=== PATIENT | male | born 1990 | race Caucasian/White ===

== ENCOUNTER 2019-10-19 07:01 | Outpatient (CLI) | payer OTHER, SELFPAY ==
[2019-10-19 08:30] LABS: Abs Immature Grans 0.05 k/cumm (0.0-0.09); Absolute Basophil Count 0.05 k/cumm (0.0-0.2); Absolute Eosinophil Count 0.15 k/cumm (0.0-0.7); Absolute Lymphocyte Count 0.91 k/cumm (1.2-3.4); Absolute Monocyte Count 0.69 k/cumm (0.11-0.7); Absolute Neutrophil Count 3.66 k/cumm (1.2-6.7); Basophils % 0.9; Eosinophils % 2.7; HCT 40.1 % (40.0-50.0); HGB 14.2 g/dL (13.5-17.5); Immature Grans % 0.9; Lymphocytes % 16.5; Mean Corp. HGB Concentration 35.4 g/dL (32.0-36.0); Mean Corpuscular Hemoglobin 31.6 pg (27.0-33.0); Mean Corpuscular Volume 89.1 fL (80-95); Mean Platelet Volume 8.9 fL (8.0-11.0); Monocytes % 12.5; Neutrophils % 66.5; Platelet Count 142 x1000/uL (130-400); RBC Distribution Width 13.9 % (11.8-14.1); White Blood Cell Count 5.51 k/cumm (4.4-10.8)
[2019-10-19 08:54] LABS: ALT 19 U/L (16-63); AST 20 U/L (15-37); Albumin 3.9 g/dL (3.4-5.0); Alkaline Phosphatase 66 U/L (46-116); BUN 12 mg/dL (7-18); Bilirubin, Total 1.3 mg/dL (0.2-1.0); CO2 28.7 mmol/L (21.0-32.0); CREATININE 0.82 mg/dL (0.70-1.30); Calcium 9.2 mg/dL (8.5-10.1); Glucose 85 mg/dL (74-106); LDH 263 U/L (85-227); Total Protein 6.8 g/dL (6.4-8.2)
[2019-10-19 08:59] LABS: Anion Gap 8.3 mmol/L (3-11); Chloride 104 mmol/L (98-107); Sodium 141 mmol/L (136-145)
== END 2019-10-19 07:21 ==
PROVIDERS: PCP Internal Medicine Hematology & Oncology; Visit Provider Internal Medicine Hematology & Oncology
DX: C82.11 Follicular lymphoma grade II, lymph nodes of head, face, and neck (principal)
CPT/HCPCS: 36415; 80053; 83615; 85025

== ENCOUNTER 2019-11-03 07:05 | Outpatient (CLI) | payer OTHER, SELFPAY ==
[2019-11-03 08:00] LABS: HCT 40.2 % (40.0-50.0); HGB 14.2 g/dL (13.5-17.5); Mean Corp. HGB Concentration 35.3 g/dL (32.0-36.0); Mean Corpuscular Hemoglobin 31.5 pg (27.0-33.0); Mean Corpuscular Volume 89.1 fL (80-95); Mean Platelet Volume 8.7 fL (8.0-11.0); Platelet Count 152 x1000/uL (130-400); RBC 4.51 m/cumm (4.50-6.00); RBC Distribution Width 14.6 % (11.8-14.1); White Blood Cell Count 5.39 k/cumm (4.4-10.8)
[2019-11-03 08:09] LABS: ALT 22 U/L (16-63); AST 14 U/L (15-37); Albumin 4.3 g/dL (3.4-5.0); Alkaline Phosphatase 80 U/L (46-116); BUN 12 mg/dL (7-18); CREATININE 0.95 mg/dL (0.70-1.30); Calcium 9.4 mg/dL (8.5-10.1); Chloride 105 mmol/L (98-107); Glucose 85 mg/dL (74-106); LDH 213 U/L (85-227); Potassium 4.2 mmol/L (3.5-5.1); Sodium 143 mmol/L (136-145); Total Protein 7.2 g/dL (6.4-8.2)
[2019-11-03 08:18] LABS: Absolute Lymphocyte Count 0.81 k/cumm (1.2-3.4); Absolute Monocyte Count 0.54 k/cumm (0.11-0.7); Absolute Neutrophil Count 3.67 k/cumm (1.2-6.7); Atypical Lymphocytes % 1
[2019-11-03 08:19] LABS: Absolute Basophil Count 0.05 k/cumm (0.0-0.2); Absolute Eosinophil Count 0.11 k/cumm (0.0-0.7); Diff Comment Manual Differential; Polychromasia Present
== END 2019-11-03 07:25 ==
PROVIDERS: PCP Internal Medicine Hematology & Oncology; Visit Provider Internal Medicine Hematology & Oncology
DX: C82.11 Follicular lymphoma grade II, lymph nodes of head, face, and neck (principal)
CPT/HCPCS: 36415; 80053; 83615; 85025

== ENCOUNTER 2020-02-16 01:17 | Outpatient (RCR) | payer MEDICAID, SELFPAY ==
[2020-02-16 07:43] LABS: Absolute Eosinophil Count 0.14 k/cumm (0.0-0.7); HCT 43.2 % (40.0-50.0); HGB 15.8 g/dL (13.5-17.5); Mean Corp. HGB Concentration 36.6 g/dL (32.0-36.0); Mean Corpuscular Hemoglobin 32.8 pg (27.0-33.0); Mean Corpuscular Volume 89.6 fL (80-95); Mean Platelet Volume 8.7 fL (8.0-11.0); Platelet Count 230 x1000/uL (130-400); RBC 4.82 m/cumm (4.50-6.00); RBC Distribution Width 13.5 % (11.8-14.1)
[2020-02-16 07:57] LABS: ALT 48 U/L (16-63); AST 25 U/L (15-37); Albumin 4.6 g/dL (3.4-5.0); Alkaline Phosphatase 101 U/L (46-116); Anion Gap 9.7 mmol/L (3-11); BUN 14 mg/dL (7-18); Bilirubin, Total 1.4 mg/dL (0.2-1.0); CO2 24.3 mmol/L (21.0-32.0); CREATININE 0.93 mg/dL (0.70-1.30); Calcium 9.8 mg/dL (8.5-10.1); Chloride 103 mmol/L (98-107); Glucose 95 mg/dL (74-106); LDH 161 U/L (85-227); Potassium 4.1 mmol/L (3.5-5.1); Sodium 137 mmol/L (136-145); Total Protein 7.9 g/dL (6.4-8.2)
[2020-02-16 08:28] LABS: White Blood Cell Count 1.59 k/cumm (4.4-10.8)
[2020-02-16 08:29] LABS: Absolute Lymphocyte Count 0.37 k/cumm (1.2-3.4); Absolute Neutrophil Count 0.14 k/cumm (1.2-6.7); Atypical Lymphocytes % 2
[2020-02-16 08:30] LABS: Absolute Basophil Count 0.06 k/cumm (0.0-0.2); Absolute Monocyte Count 0.87 k/cumm (0.11-0.7); Diff Comment Manual Differential; RBC Morphology Normal
== END 2020-02-24 23:59 | disposition home or self-care (01) ==
LOC: INF 01:17
PROVIDERS: PCP Internal Medicine Hematology & Oncology; Visit Provider Internal Medicine Hematology & Oncology
DX: C82.11 Follicular lymphoma grade II, lymph nodes of head, face, and neck (principal); Z45.2 Encounter for adjustment and management of vascular access device
CPT/HCPCS: 36415; 80053; 83615; 85025

== ENCOUNTER 2020-03-08 10:21 | Outpatient (RCR) | payer MEDICAID, SELFPAY ==
[2020-03-08] MEDS: Normal Saline Flush 10 ML SYR 20 ML IVP (10:33)
[2020-03-08 10:35] LABS: Abs Immature Grans 0.01 k/cumm (0.0-0.09); Absolute Basophil Count 0.07 k/cumm (0.0-0.2); Absolute Eosinophil Count 0.17 k/cumm (0.0-0.7); Absolute Lymphocyte Count 0.46 k/cumm (1.2-3.4); Absolute Monocyte Count 0.49 k/cumm (0.11-0.7); Absolute Neutrophil Count 1.68 k/cumm (1.2-6.7); Basophils % 2.4; Eosinophils % 5.9; HCT 43.9 % (40.0-50.0); HGB 15.9 g/dL (13.5-17.5); Immature Grans % 0.3 %; Mean Corp. HGB Concentration 36.2 g/dL (32.0-36.0); Mean Corpuscular Hemoglobin 32.4 pg (27.0-33.0); Mean Corpuscular Volume 89.4 fL (80-95); Mean Platelet Volume 8.7 fL (8.0-11.0); Neutrophils % 58.4; Platelet Count 273 x1000/uL (130-400); RBC 4.91 m/cumm (4.50-6.00); White Blood Cell Count 2.88 k/cumm (4.4-10.8)
== END 2020-03-26 23:59 | disposition home or self-care (01) ==
LOC: INF 10:21
PROVIDERS: PCP Internal Medicine Hematology & Oncology; Visit Provider Internal Medicine Hematology & Oncology
DX: C82.11 Follicular lymphoma grade II, lymph nodes of head, face, and neck (principal)
CPT/HCPCS: 36415; 85025

== ENCOUNTER 2020-06-28 04:48 | Outpatient (RCR) | payer MEDICAID, SELFPAY | END 2020-07-26 23:59 | disposition home or self-care (01) | LOC: INF 04:48 | PROVIDERS: PCP Internal Medicine Hematology & Oncology; Visit Provider Internal Medicine Hematology & Oncology | DX: Z53.9 Procedure and treatment not carried out, unspecified reason (principal) ==

== ENCOUNTER 2021-10-12 02:16 | Outpatient (CLI) | payer MEDICAID, SELFPAY ==
--- NOTE | 2021-10-12 | DI.US_ITS ---
APPROVED REPORT EXAM: Comprehensive 2D, Doppler, and color-flow Echocardiogram Patient Location: Out-Patient [facility] Operator: Michaelle Becker RDCS (AE) Indications: Pre anthracycline chemo, Follicular lymphoma Other Information Study Quality: Adequate Conclusion Normal left ventricular wall thickness and chamber size. Estimated ejection fraction is 60 to 65%. Wall motion is normal Normal right ventricular size and systolic function Both atria are normal in size There is no structural or hemodynamically significant valvular disease Wall motion Left Ventricle The left ventricle is normal size. The left ventricular systolic function is normal. The left ventric ular ejection fraction is within the normal range. There is normal left ventricular wall thickness. T here is normal LV segmental wall motion. There is no ventricular septal defect visualized. LVEF is 60 -65%. Right Ventricle The right ventricle is normal size. The right ventricular systolic function is normal. Atria The left atrium size is normal. The right atrium size is normal. The interatrial septum is intact wit h no evidence for an atrial septal defect. Aortic Valve The aortic valve is normal in structure. Aortic valve is trileaflet. There is no aortic valvular sten osis. No aortic regurgitation is present. Mitral Valve The mitral valve is normal in structure. No evidence of mitral valve stenosis. Trace mitral regurgita tion. Tricuspid Valve The tricuspid valve is normal in structure. There is no tricuspid valve stenosis. Trace tricuspid reg urgitation. Unable to assess PA pressure. Pulmonic Valve The pulmonary valve is normal in structure. There is no pulmonic valvular stenosis. Trace pulmonic re gurgitation. Great Vessels The aortic root is normal in size. The ascending aorta is normal in size. Aortic arch is normal in ca liber. IVC is normal in size and collapses >50% with inspiration. Pericardium There is no pericardial effusion. 2D Dimensions IVSD d PLAX 1.05 cm M: 0.6-1.2 LV Vol A2C d MOD 99.6 mL LVPW d PLAX 1.03 cm M: 0.6 - 1.2 LV Vol A4C d MOD 141.2 mL LVID d PLAX 4.59 cm M: 4.2 - 5.8 LA vol/ BSA A2C s A-L 22.5 mL/m2 LVDs 3.15 cm M: 2.5 - 4.0 LA vol/ BSA A4C s A-L 17.9 mL/m2 Ao Root d 2.83 cm M: 3.1 - 3.7 LA Vol/ BSA Biplane s A-L 20.2 mL/m2 RA Area A4C 13.32 cm2 LA Area A4C s MOD 14.51 cm2 RA Vol/ BSA A4C s A-L 15.5 mL/m2 LA Area A2C s MOD 16.36 cm2 Ao Asc Diam d 3.03 cm M: 2.6 - 3.4 LV EF A4C MOD 58.5 % LV EF Teichholz 58.6 % LV EF A2C MOD 59.1 % LVEF ([facility]) 59.89 % M: 52 - 72 LV EF Biplane MOD 59.9 % LV Volume 91.13 mL M: 62 - 150 SV 73.43 mL LV Volume Index 44.45 mL/m2 M: 34 - 74 SV Index 35.72 mL/m2 LV Vol Biplane MOD 122.6 mL FS 30.85 % M-Mode TAPSE 2.27 cm (M/F) >1.7 LV Diastology MV E' medial 0.159 (>0.07 m/s) E/A Ratio 1.3 LV E/e MED 4.15 (<14) MV E Vmax 0.66 (0.4-1.3 m/s) MV E' lateral 0.144 (>0.1 m/s) MV A Vmax 0.50 (0.4-1.3 m/s) LV E/e LAT 4.60 (<14) MV E/A Ratio 1.31 MV E/E' medial 4.18 MV E/E' lateral 4.60 Aortic Valve LVOT Area 3.55 cm2 AoV Area Vmax 2.74 cm2 LVOT Vmax 0.82 m/s AoV Area/ BSA (Vmax) 1.33 cm2/m2 LVOT Mean Devon. 0.57 m/s YOSI Mean Devon. 2.48 cm2 LVOT Peak Grad 2.7 mmHg YOSI Mean Devon. Index 1.21 cm2/m2 LVOT Mean Grad 1.5 mmHg LVOT VTI 0.174 m LVOT Diam s 2.10 cm AoV Vmax 1.06 m/s Velocity Ratio 0.77 AoV Mean Devon. 0.81 m/s AoV Peak Grad 4.5 mmHg LVOT SV 61.67 mL AoV Mean Grad 2.9 mmHg AoV VTI 0.195 m AoV Area VTI 3.16 cm2 AoV Area/ BSA (VTI) 1.54 cm/m2 Mitral Valve MV DT 180 (160-240 msec) MV PHT 52 msec MV Area PHT 4.22 cm2 MV VTI 0.215 m MV Area VTI 2.87 (4.0-6.0 cm2) Pulmonary Valve PV Vmax 1.04 (0.5-1.5 m/s) RVOT Peak Gr. 1.95 mmHg PV Peak Grad 4.3 mmHg RVOT Mean Gr. 0.90 mmHg PV Mean Grad 2.3 mmHg RVOT VTI 0.137 m PV VTI 0.207 m RVOT Vmax 0.70 m/s
== END 2021-10-12 02:36 ==
PROVIDERS: PCP Internal Medicine Hematology & Oncology; Visit Provider Internal Medicine Hematology & Oncology
DX: Z01.810 Encounter for preprocedural cardiovascular examination (principal); C82.11 Follicular lymphoma grade II, lymph nodes of head, face, and neck
CPT/HCPCS: 93306

== ENCOUNTER 2022-03-13 09:58 | Outpatient (RCR) | payer MEDICAID, SELFPAY | END 2022-03-26 23:59 | disposition home or self-care (01) | LOC: INF 09:58 | PROVIDERS: PCP Internal Medicine Hematology & Oncology; Visit Provider Nurse Practitioner Acute Care | DX: Z29.8 Encounter for other specified prophylactic measures (principal) | CPT/HCPCS: 96372; Q0221 ==